=== PATIENT | male | born 1965 | race Caucasian/White ===

== ENCOUNTER 2020-04-08 13:23 | Inpatient (IN) | payer MEDICARE, MEDICAID ==
[~2020-04-08] VITALS: Ht 172.7 cm; Wt 94.8 kg
[2020-04-08] MEDS ORDERED: LORazepam 2 MG TABLET PO ONE (14:45)
[2020-04-08 15:06] LABS: COVID AG,FIA SOURCE NASOPHARYNGEAL
[2020-04-08 15:20] LABS: AMPHET/METH SCREEN,URINE NEGATIVE (NEGATIVE); BARBITURATE SCREEN, URINE NEGATIVE (NEGATIVE); BENZODIAZEPINES SCREEN,URINE NEGATIVE (NEGATIVE); CANNABINOID SCREEN,URINE POSITIVE (NEGATIVE); COCAINE SCREEN,URINE NEGATIVE (NEGATIVE); METHADONE SCREEN, URINE NEGATIVE (NEGATIVE); OPIATE SCREEN,URINE NEGATIVE (NEGATIVE)
[2020-04-08 15:25] LABS: BASOPHILS % (AUTO) 1.1 % (0.0-2.0); EOSINOPHILS % (AUTO) 0.4 % (1.0-6.0); HEMATOCRIT 49.3 % (41-53); HEMOGLOBIN 16.7 g/dL (13.5-17.5); LYMPHOCYTES # (AUTO) 2.1 K/uL (1.0-4.8); LYMPHOCYTES % (AUTO) 29.3 % (22.0-44.0); MEAN CORPUSCULAR HEMOGLOBIN 30.2 pg (26.0-34.0); MEAN CORPUSCULAR HGB CONC 33.8 G/dL (31.0-37.0); MEAN CORPUSCULAR VOLUME 89 fL (80-100); MONOCYTES # (AUTO) 0.5 K/uL (0.1-1.0); MONOCYTES % (AUTO) 7.5 % (2.0-9.0); NEUTROPHILS # (AUTO) 4.4 K/uL (1.8-7.7); NEUTROPHILS % (AUTO) 61.7 % (40.0-70.0); PLATELET COUNT (AUTO) 165 K/uL (150-450); RED BLOOD CELL COUNT(AUTO) 5.53 MIL/uL (4.50-5.90); RED CELL DISTRIBUTION WIDTH 14.4 % (11.5-14.5)
[2020-04-08 15:26] LABS: PHENCYCLIDINE SCREEN,URINE NEGATIVE (NEGATIVE)
[2020-04-08 15:52] LABS: ALANINE AMINOTRANSFERASE 78 U/L (12-78); ALKALINE PHOSPHATASE 120 U/L (46-116); ANION GAP 20 mmol/L (8-16); ASPARTATE AMINOTRANSFERASE 108 U/L (15-37); BILIRUBIN,TOTAL 1.5 mg/dL (0.1-1.0); CALCIUM, TOTAL 8.9 mg/dL (8.8-10.5); CARBON DIOXIDE 20 mmol/L (22-29); CHLORIDE 101 mmol/L (98-107); GLUCOSE,RANDOM 139 mg/dL (70-110); POTASSIUM 3.3 mmol/L (3.5-5.1); SODIUM SERUM 141 mmol/L (136-145); TOTAL PROTEIN, SERUM 8.2 g/dL (6.4-8.2); UREA NITROGEN, BLOOD 21 mg/dL (7-18)
[2020-04-08 15:58] LABS: GLOMERULAR FILTR. RATE CALC > 60 mL/min (>60)
[2020-04-08 15:59] LABS: SALICYLATE < 2.8 mg/dL (2.8-20.0)
[2020-04-08 16:26] LABS: CREATININE 1.11 mg/dL (0.60-1.30)
[2020-04-08 16:27] LABS: ACETAMINOPHEN < 2 mcg/mL (10-30)
[2020-04-08] MEDS ORDERED: POTASSIUM CHLORIDE 20 MEQ ER TABLET PO ONE (18:45)
[2020-04-08] MEDS: ChlordiazePOXIDE HCL 25 MG CAPSULE PO ONE ×2 (20:00→20:06)
[2020-04-08] MEDS ORDERED: SODIUM CHLORIDE 0.9% 1,000 ML IV ONE (20:15)
[2020-04-08] MEDS ORDERED: ONDANSETRON HCL 4 MG/2 ML VIAL IVP ONE ×2 (20:15→20:30)
[2020-04-08] MEDS ORDERED: LORazepam 2 MG/ML VIAL IVP ONE (20:30)
[2020-04-09] VITALS (11 sets, daily range): BP systolic 139–188; BP diastolic 22–108
[2020-04-09] MEDS ORDERED: METOCLOPRAMIDE HCL 5 MG/ML 2 ML VIAL IVP ONE
[2020-04-09] MEDS ORDERED: ChlordiazePOXIDE HCL 25 MG CAPSULE PO ONE (01:00)
[2020-04-09] MEDS: ChlordiazePOXIDE HCL 25 MG CAPSULE PO PRN ×4 (03:34→20:14)
[2020-04-09] MEDS: ONDANSETRON HCL 4 MG TABLET PO PRN ×3 (03:36→14:26)
[2020-04-09] MEDS ORDERED: INFLUENZA VIRUS VACCINE QVS 2020-21 (6MO+)/PF 60 MCG/0.5 ML SYRINGE IM ONE (04:15)
[2020-04-09] MEDS ORDERED: CloNIDine HCL 0.1 MG TABLET PO PRN (05:45)
[2020-04-09] MEDS ORDERED: IBUPROFEN 600 MG TABLET PO PRN (05:45)
[2020-04-09] MEDS ORDERED: ALBUTEROL SULFATE HFA 90 MCG/PUFF 8 GM INHALER IH PRN (05:45)
[2020-04-09] MEDS ORDERED: ACETAMINOPHEN 325 MG TABLET PO PRN (05:45)
[2020-04-09] MEDS ORDERED: MAG HYDROX/AL HYDROX/SIMETH ES 30 ML SUSPENSION UDCUP PO PRN (05:45)
[2020-04-09] MEDS ORDERED: DOCUSATE SODIUM 100 MG CAPSULE PO PRN (05:45)
[2020-04-09] MEDS ORDERED: MAGNESIUM HYDROXIDE SUSPENSION 30 ML UDCUP PO PRN (05:45)
[2020-04-09] MEDS ORDERED: BACITRACIN 28 GM OINTMENT TP PRN (05:45)
[2020-04-09] MEDS ORDERED: PETROLATUM,WHITE 28 GM JELLY TP PRN (05:45)
[2020-04-09] MEDS ORDERED: BENZOCAINE/MENTHOL LOZENGE PO PRN (05:45)
[2020-04-09] MEDS ORDERED: LOPERAMIDE HCL 2 MG CAPSULE PO PRN (05:45)
[2020-04-09] MEDS ORDERED: OMEPRAZOLE 20 MG CAPSULE PO PRN (05:45)
[2020-04-09] MEDS ORDERED: POTASSIUM CHLORIDE 20 MEQ ER TABLET PO ONE (09:00)
[2020-04-09] MEDS: METOPROLOL TARTRATE 25 MG TABLET PO SCH ×2 (09:05→16:42)
[2020-04-10] MEDS: ChlordiazePOXIDE HCL 25 MG CAPSULE PO PRN (00:31)
[2020-04-10 03:30] VITALS: BP 146/95
[2020-04-10] MEDS: ONDANSETRON HCL 4 MG TABLET PO PRN (03:33)
[2020-04-10] MEDS ORDERED: ChlordiazePOXIDE HCL 25 MG CAPSULE PO PRN (07:00)
[2020-04-10 07:58] LABS: ALANINE AMINOTRANSFERASE 74 U/L (12-78); ALBUMIN 3.4 g/dL (3.4-5.0); ALKALINE PHOSPHATASE 107 U/L (46-116); ANION GAP 11 mmol/L (8-16); ASPARTATE AMINOTRANSFERASE 92 U/L (15-37); BILIRUBIN,TOTAL 2.7 mg/dL (0.1-1.0); CALCIUM, TOTAL 9.6 mg/dL (8.8-10.5); CARBON DIOXIDE 26 mmol/L (22-29); CHLORIDE 101 mmol/L (98-107); CREATININE 0.95 mg/dL (0.60-1.30); GLOMERULAR FILTR. RATE CALC > 60 mL/min (>60); GLUCOSE,RANDOM 109 mg/dL (70-110); POTASSIUM 3.8 mmol/L (3.5-5.1); SODIUM SERUM 138 mmol/L (136-145); TOTAL PROTEIN, SERUM 7.4 g/dL (6.4-8.2); UREA NITROGEN, BLOOD 17 mg/dL (7-18)
[2020-04-10] MEDS: ChlordiazePOXIDE HCL 25 MG CAPSULE PO SCH ×4 (09:42→20:57)
[2020-04-10] MEDS: METOPROLOL TARTRATE 25 MG TABLET PO SCH ×2 (09:42→17:01)
[2020-04-10 10:47] VITALS: BP 146/98
[2020-04-10 16:00] VITALS: BP 134/92
[2020-04-10] MEDS: PARoxetine HCL 20 MG TABLET PO SCH (17:00)
[2020-04-11 06:15] VITALS: BP 124/77
[2020-04-11 08:00] VITALS: BP 115/92
[2020-04-11] MEDS: PARoxetine HCL 20 MG TABLET PO SCH (09:21)
[2020-04-11] MEDS: ChlordiazePOXIDE HCL 25 MG CAPSULE PO SCH ×4 (09:21→20:48)
[2020-04-11] MEDS: METOPROLOL TARTRATE 25 MG TABLET PO SCH ×2 (09:21→16:27)
[2020-04-11 10:00] VITALS: BP 115/92
[2020-04-11 16:00] VITALS: BP 122/72
[2020-04-11 16:46] VITALS: BP 122/72
[2020-04-12 01:20] VITALS: BP 142/101
[2020-04-12 08:46] VITALS: BP 134/76
[2020-04-12 08:53] VITALS: BP 134/76
[2020-04-12] MEDS: METOPROLOL TARTRATE 25 MG TABLET PO SCH ×2 (09:31→16:51)
[2020-04-12] MEDS: PARoxetine HCL 20 MG TABLET PO SCH (09:31)
[2020-04-12] MEDS: ChlordiazePOXIDE HCL 10 MG CAPSULE PO SCH ×4 (09:31→20:37)
[2020-04-12 16:43] VITALS: BP 125/90
[2020-04-12 16:45] VITALS: BP 125/90
[2020-04-13] VITALS: BP 146/78
[2020-04-13] MEDS: ChlordiazePOXIDE HCL 10 MG CAPSULE PO PRN ×2 (03:32→05:41)
[2020-04-13] MEDS ORDERED: ChlordiazePOXIDE HCL 10 MG CAPSULE PO PRN (07:00)
[2020-04-13 08:42] VITALS: BP 117/86
[2020-04-13] MEDS: PARoxetine HCL 20 MG TABLET PO SCH (09:11)
[2020-04-13] MEDS: METOPROLOL TARTRATE 25 MG TABLET PO SCH (09:11)
[2020-04-13 09:14] VITALS: BP 117/86
[2020-04-13] MEDS ORDERED: PARO-38 PO (13:44)
[2020-04-13] MEDS ORDERED: METO25 PO (13:45)
== END 2020-04-13 16:30 | disposition home or self-care (01) | DRG 881 ==
LOC: EMS 13:26 → 3EX 21:10
PROVIDERS: ADMIT Psychiatry & Neurology Psychiatry; ATTEND Psychiatry & Neurology Psychiatry
DX: F32.9 Major depressive disorder, single episode, unspecified (principal); F10.139 Alcohol abuse with withdrawal, unspecified; R45.851 Suicidal ideations; F41.9 Anxiety disorder, unspecified; I10 Essential (primary) hypertension; K21.9 Gastro-esophageal reflux disease without esophagitis; K59.00 Constipation, unspecified; K75.9 Inflammatory liver disease, unspecified; E66.9 Obesity, unspecified; E87.6 Hypokalemia; F12.90 Cannabis use, unspecified, uncomplicated; F17.200 Nicotine dependence, unspecified, uncomplicated; Z20.822 Contact with and (suspected) exposure to COVID-19; Z23 Encounter for immunization; Z68.31 Body mass index [BMI] 31.0-31.9, adult
CPT/HCPCS: 87426; 93005; G0378; G0480; G0481; J2060; J2405; J2765; J7030; Q0162